=== PATIENT | female | born 1985 | race Caucasian/White ===

== ENCOUNTER 2023-05-10 12:10 | Inpatient (IN) | payer MEDICAID, OTHER, SELFPAY ==
[~2023-05-10] VITALS: Ht 167.6 cm; Wt 98.6 kg
[2023-05-10] MEDS ORDERED: PERTUSS(ACELL),DIPH,TET VAC/PF 0.5 ML SYRINGE IM. ONE (12:30)
[2023-05-10 12:48] LABS: BASOPHILS % (AUTO) 0.5 % (0.0-2.0); EOSINOPHILS % (AUTO) 1.1 % (1.0-6.0); HEMATOCRIT 41.4 % (36-46); HEMOGLOBIN 13.4 g/dL (12.0-16.0); LYMPHOCYTES # (AUTO) 1.2 K/uL (1.0-4.8); LYMPHOCYTES % (AUTO) 21.1 % (22.0-44.0); MEAN CORPUSCULAR HEMOGLOBIN 28.2 pg (26.0-34.0); MEAN CORPUSCULAR HGB CONC 32.4 G/dL (31.0-37.0); MEAN CORPUSCULAR VOLUME 87 fL (80-100); MONOCYTES # (AUTO) 0.5 K/uL (0.1-1.0); MONOCYTES % (AUTO) 9.2 % (2.0-9.0); NEUTROPHILS % (AUTO) 68.1 % (40.0-70.0); PLATELET COUNT (AUTO) 264 K/uL (150-450); RED BLOOD CELL COUNT(AUTO) 4.75 MIL/uL (4.00-5.20); RED CELL DISTRIBUTION WIDTH 14.8 % (11.5-14.5)
[2023-05-10 13:01] LABS: ANION GAP 6 mmol/L (8-16); CALCIUM, TOTAL 9.4 mg/dL (8.8-10.5); CARBON DIOXIDE 28 mmol/L (22-29); CHLORIDE 102 mmol/L (98-107); GLOMERULAR FILTR. RATE CALC > 60 mL/min (>60); GLUCOSE,RANDOM 130 mg/dL (70-110); POTASSIUM 3.6 mmol/L (3.5-5.1); SODIUM SERUM 136 mmol/L (136-145)
[2023-05-10 13:08] LABS: ALANINE AMINOTRANSFERASE 49 U/L (12-78); ALBUMIN 3.4 g/dL (3.4-5.0); ALKALINE PHOSPHATASE 75 U/L (46-116); ASPARTATE AMINOTRANSFERASE 32 U/L (15-37); BILIRUBIN,TOTAL 0.5 mg/dL (0.1-1.0); TOTAL PROTEIN, SERUM 7.4 g/dL (6.4-8.2)
[2023-05-10 13:39] LABS: COVID AG,FIA SOURCE NASOPHARYNGEAL
[2023-05-10 13:43] LABS: APPEARANCE,URINE CLEAR (CLEAR); BILIRUBIN,URINE NEGATIVE (NEGATIVE); GLUCOSE, URINE (UA) NEGATIVE (NEGATIVE); KETONES,URINE NEGATIVE (NEGATIVE); LEUKOCYTE ESTERASE ,URINE TRACE (NEGATIVE); NITRATE,URINE POSITIVE (NEGATIVE); OCCULT BLOOD,URINE NEGATIVE (NEGATIVE); PROTEIN,URINE NEGATIVE (NEGATIVE); SPECIFIC GRAVITIY, URINE 1.006 (1.003-1.030); UROBILINOGEN,URINE <=1.0 mg/dL (<=1.0)
[2023-05-10 13:49] LABS: AMPHET/METH SCREEN,URINE NEGATIVE (NEGATIVE); BARBITURATE SCREEN, URINE NEGATIVE (NEGATIVE); BENZODIAZEPINES SCREEN,URINE NEGATIVE (NEGATIVE); CANNABINOID SCREEN,URINE NEGATIVE (NEGATIVE); COCAINE SCREEN,URINE POSITIVE (NEGATIVE); METHADONE SCREEN, URINE NEGATIVE (NEGATIVE); OPIATE SCREEN,URINE NEGATIVE (NEGATIVE); PHENCYCLIDINE SCREEN,URINE NEGATIVE (NEGATIVE)
[2023-05-10 13:50] LABS: BACTERIA,URINE Many /HPF (None Seen); RBC,URINE None Seen /HPF (0-2); SQUAMOUS EPITHELIAL CELL,UR Rare /LPF (None Seen); WBC,URINE 0-2 /HPF (0-5)
[2023-05-10] MEDS: LORazepam 2 MG TABLET PO PRN ×2 (15:01→20:45)
[2023-05-11] VITALS (8 sets, daily range): BP systolic 114–136; BP diastolic 64–92; PULSE 71–91; RESP 16–18; TEMP 97–97.4; O2SAT 96–100
[2023-05-11] MEDS ORDERED: MAG HYDROX/AL HYDROX/SIMETH ES 30 ML SUSPENSION UDCUP PO PRN ×2 (11:30→21:00)
[2023-05-11] MEDS ORDERED: IBUPROFEN 600 MG TABLET PO PRN (11:30)
[2023-05-11] MEDS ORDERED: HydrOXYzine PAMOATE 50 MG CAPSULE PO PRN (11:30)
[2023-05-11] MEDS ORDERED: CloNIDine HCL 0.1 MG TABLET PO PRN ×2 (11:30→21:00)
[2023-05-11] MEDS: CloNIDine HCL 0.1 MG TABLET PO SCH ×3 (11:57→21:28)
[2023-05-11] MEDS: LORazepam 2 MG TABLET PO PRN ×2 (11:57→16:55)
[2023-05-11] MEDS: OLANZapine 5 MG RAPDIS TABLET PO PRN ×2 (13:21→20:49)
[2023-05-11] MEDS: BACITRACIN 28 GM OINTMENT TP SCH (16:55)
[2023-05-11] MEDS: ZOLPIDEM TARTRATE 10 MG TABLET PO PRN (20:49)
[2023-05-11] MEDS ORDERED: ALBUTEROL SULFATE HFA 90 MCG/PUFF 8 GM INHALER IH PRN (21:00)
[2023-05-11] MEDS ORDERED: NICOTINE 14 MG/24 HOUR PATCH TD PRN (21:00)
[2023-05-11] MEDS ORDERED: ONDANSETRON HCL 4 MG TABLET PO PRN (21:00)
[2023-05-11] MEDS ORDERED: GuaiFENesin/D-METHORPHAN [SUGAR-FREE] 200-20MG/10 ML SYRUP UDCUP PO PRN (21:00)
[2023-05-11] MEDS ORDERED: MAGNESIUM HYDROXIDE SUSPENSION 30 ML UDCUP PO PRN (21:00)
[2023-05-11] MEDS ORDERED: DOCUSATE SODIUM 100 MG CAPSULE PO PRN (21:00)
[2023-05-11] MEDS ORDERED: PETROLATUM,WHITE 28 GM JELLY TP PRN (21:00)
[2023-05-11] MEDS ORDERED: ACETAMINOPHEN 325 MG TABLET PO PRN (21:00)
[2023-05-11] MEDS ORDERED: LOPERAMIDE HCL 2 MG CAPSULE PO PRN (21:00)
[2023-05-11] MEDS ORDERED: IBUPROFEN 400 MG TABLET PO PRN (21:00)
[2023-05-11] MEDS: CEPHALEXIN MONOHYDRATE 500 MG CAPSULE PO SCH (21:07)
[2023-05-12] VITALS (8 sets, daily range): BP systolic 95–124; BP diastolic 61–78; PULSE 66–86; RESP 17–20; TEMP 97.1–98; O2SAT 95–98
[2023-05-12] MEDS: LORazepam 2 MG TABLET PO PRN ×3 (05:10→17:51)
[2023-05-12] MEDS: CloNIDine HCL 0.1 MG TABLET PO SCH ×4 (05:44→21:59)
[2023-05-12 07:36] LABS: BASOPHILS % (AUTO) 0.4 % (0.0-2.0); EOSINOPHILS % (AUTO) 1.2 % (1.0-6.0); HEMATOCRIT 37.8 % (36-46); HEMOGLOBIN 12.9 g/dL (12.0-16.0); LYMPHOCYTES # (AUTO) 2.5 K/uL (1.0-4.8); LYMPHOCYTES % (AUTO) 29.1 % (22.0-44.0); MEAN CORPUSCULAR HEMOGLOBIN 29.5 pg (26.0-34.0); MEAN CORPUSCULAR VOLUME 87 fL (80-100); MONOCYTES # (AUTO) 0.8 K/uL (0.1-1.0); NEUTROPHILS # (AUTO) 5.1 K/uL (1.8-7.7); NEUTROPHILS % (AUTO) 60.3 % (40.0-70.0); PLATELET COUNT (AUTO) 240 K/uL (150-450); RED BLOOD CELL COUNT(AUTO) 4.36 MIL/uL (4.00-5.20); RED CELL DISTRIBUTION WIDTH 14.7 % (11.5-14.5)
[2023-05-12 07:48] LABS: HEMOGLOBIN A1C 5.6 % (3.8-5.6)
[2023-05-12 08:01] LABS: ALANINE AMINOTRANSFERASE 42 U/L (12-78); ALBUMIN 3.1 g/dL (3.4-5.0); ALKALINE PHOSPHATASE 67 U/L (46-116); ANION GAP 9 mmol/L (8-16); ASPARTATE AMINOTRANSFERASE 19 U/L (15-37); BILIRUBIN,TOTAL 0.3 mg/dL (0.1-1.0); CALCIUM, TOTAL 9.1 mg/dL (8.8-10.5); CARBON DIOXIDE 28 mmol/L (22-29); CHLORIDE 102 mmol/L (98-107); CHOL/HDL RATIO 5.4 (3.9-5.7); CHOLESTEROL 206 mg/dL (131-200); CREATININE 0.85 mg/dL (0.60-1.30); GLOMERULAR FILTR. RATE CALC > 60 mL/min (>60); GLUCOSE,RANDOM 107 mg/dL (70-110); HDL CHOLESTEROL 38 mg/dL (40-60); LDL CHOL (CALC.) 134 mg/dL (0-130); POTASSIUM 3.6 mmol/L (3.5-5.1); SODIUM SERUM 139 mmol/L (136-145); THYROID STIMULATING HORMONE 1.43 uIU/mL (0.36-3.74); TOTAL PROTEIN, SERUM 6.8 g/dL (6.4-8.2); TRIGLYCERIDES 171 mg/dL (15-150)
[2023-05-12] MEDS: CEPHALEXIN MONOHYDRATE 500 MG CAPSULE PO SCH ×2 (09:43→17:51)
[2023-05-12] MEDS: BACITRACIN 28 GM OINTMENT TP SCH ×2 (09:45→17:52)
[2023-05-12] MEDS: OLANZapine 5 MG RAPDIS TABLET PO PRN (17:51)
[2023-05-12] MEDS: ZOLPIDEM TARTRATE 10 MG TABLET PO PRN (20:41)
[2023-05-13 05:56] VITALS: BP 102/54; PULSE 62; RESP 18; O2SAT 97
[2023-05-13] MEDS: CloNIDine HCL 0.1 MG TABLET PO SCH ×3 (05:58→17:45)
[2023-05-13 09:00] VITALS: BP 96/60; PULSE 60; RESP 18; TEMP 97.6; O2SAT 98
[2023-05-13] MEDS: CEPHALEXIN MONOHYDRATE 500 MG CAPSULE PO SCH ×2 (09:06→17:45)
[2023-05-13 12:05] VITALS: BP 113/65; PULSE 115
[2023-05-13] MEDS: LORazepam 2 MG TABLET PO PRN (12:09)
[2023-05-13] MEDS: BACITRACIN 28 GM OINTMENT TP SCH ×2 (12:51→17:45)
[2023-05-13] MEDS ORDERED: HydrOXYzine PAMOATE 50 MG CAPSULE PO PRN (13:15)
[2023-05-13] MEDS ORDERED: CEPH-558 PO (14:27)
[2023-05-13 15:39] VITALS: BP 134/102; PULSE 96
[2023-05-13] MEDS: OLANZapine 5 MG RAPDIS TABLET PO PRN (15:40)
[2023-05-13 17:44] VITALS: BP 115/65; PULSE 101
== END 2023-05-13 18:45 | disposition home or self-care (01) | DRG 751 ==
LOC: EMS 12:11 → 3EI 05-11 09:23
PROVIDERS: ADMIT Psychiatry & Neurology Child & Adolescent Psychiatry; ATTEND Psychiatry & Neurology Child & Adolescent Psychiatry
PROC: 0HQGXZZ Repair Left Hand Skin, External Approach (ICD-10-PCS; principal; 2023-05-10)
DX: F33.2 Major depressive disorder, recurrent severe without psychotic features (principal); R45.851 Suicidal ideations; I95.9 Hypotension, unspecified; F22 Delusional disorders; S51.812A Laceration without foreign body of left forearm, initial encounter; X58.XXXA Exposure to other specified factors, initial encounter; F41.9 Anxiety disorder, unspecified; G47.00 Insomnia, unspecified; F14.10 Cocaine abuse, uncomplicated; Z20.822 Contact with and (suspected) exposure to COVID-19; Y93.89 Activity, other specified; Y92.89 Other specified places as the place of occurrence of the external cause; Y99.8 Other external cause status
CPT/HCPCS: 80053; 80061; 80307; 81001; 83036; 84443; 85025; 87086; 87186; 90715; 99285; G0480; Q0162

== ENCOUNTER 2023-08-02 17:27 | Emergency (ER) | payer MEDICAID, OTHER ==
[~2023-08-02] VITALS: Ht 167.6 cm; Wt 92.7 kg
[~2023-08-02 17:27] MED LIST: CEPH-558 PO
[2023-08-02 17:28] VITALS: BP 142/97; PULSE 96; RESP 18; TEMP 98.9
== END 2023-08-02 18:40 | disposition left against medical advice (07) ==
LOC: EMS 17:28
DX: F10.90 Alcohol use, unspecified, uncomplicated (principal); Z53.21 Procedure and treatment not carried out due to patient leaving prior to being seen by health care provider
CPT/HCPCS: 99281; Z7502